=== PATIENT | female | born 1960 | race Hispanic/Latino ===

== ENCOUNTER 2023-11-22 11:40 | Inpatient (IN) | payer BC ==
[~2023-11-22] VITALS: Ht 154.9 cm; Wt 53.5 kg
[2023-11-22 11:45] VITALS: TEMP 97.1
[2023-11-22 12:26] LABS: EOSINOPHILS # (AUTO) 0.1 (0.0-0.4); EOSINOPHILS % 2.3 % (0.0-6.0); HEMATOCRIT 30.1 % (34.2-44.1); HEMOGLOBIN 9.4 g/dL (12.0-16.0); LYMPHOCYTES # (AUTO) 0.8 (1.0-3.2); LYMPHOCYTES % 24.9 % (18.0-39.1); MEAN CORPUSCULAR HEMOGLOBIN 25.5 pg (28-32); MEAN CORPUSCULAR HGB CONC 31.2 g/dL (31-35); MEAN CORPUSCULAR VOLUME 81.6 fL (81-99); MONOCYTES # (AUTO) 0.2 (0.2-0.8); NEUTROPHILS # (AUTO) 1.9 (2.1-6.9); NEUTROPHILS % 63.8 % (38.7-80.0); PLATELET COUNT 270 x10e3/uL (140-360); RED BLOOD COUNT 3.69 x10e6/uL (3.6-5.1); RED CELL DISTRIBUTION WIDTH 16.2 % (11.7-14.4); WHITE BLOOD COUNT 3.01 x10e3/uL (4.8-10.8)
[2023-11-22 12:42] LABS: ALBUMIN 3.6 g/dL (3.5-5.0); ALBUMIN/GLOBULIN RATIO 0.7 (0.8-2.0); ANION GAP 16.4 mmol/L (8-16); BILIRUBIN,TOTAL 0.2 mg/dL (0.2-1.2); CALCIUM 9.3 mg/dL (8.4-10.2); CREATININE, SERUM 2.94 mg/dL (0.57-1.11); POTASSIUM 4.4 mmol/L (3.5-5.1); TOTAL PROTEIN 8.6 g/dL (6.5-8.1)
[2023-11-22 14:24] VITALS: PULSE 84; RESP 18; O2SAT 99
[2023-11-22 15:02] LABS: CLARITY,URINE CLEAR (CLEAR); COLOR,URINE STRAW (YELLOW); PH,URINE 5.5 (5 - 7)
[2023-11-22 15:03] LABS: BILIRUBIN,URINE NEGATIVE (NEGATIVE); GLUCOSE, URINE NEGATIVE (NEGATIVE); KETONES,URINE NEGATIVE (NEGATIVE); LEUKOCYTE ESTERASE ,URINE NEGATIVE (NEGATIVE); NITRITE,URINE NEGATIVE (NEGATIVE); PROTEIN,URINE DIPSTICK 2+ (NEGATIVE); URINE UROBILINOGEN 0.2 mg/dL (0.2 - 1)
[2023-11-22 15:50] LABS: RBC,URINE >50 /HPF (0-5)
[2023-11-22] MEDS: SODIUM CHLORIDE 0.9% 1000ML 1,000 ML IV SCH (16:49)
[2023-11-22 18:00] VITALS: PULSE 75; RESP 16
[2023-11-22 20:20] VITALS: PULSE 81; RESP 18; O2SAT 99
[2023-11-22 21:00] VITALS: BP 192/84; PULSE 96; RESP 17; TEMP 97.7; O2SAT 100; O2SAT 94
[2023-11-22] MEDS ORDERED: AMLODIPINE BESY10 MG PO (22:47)
[2023-11-23] VITALS (7 sets, daily range): BP systolic 120–183; BP diastolic 69–94; PULSE 66–87; RESP 17–18; TEMP 97.7–98.2; O2SAT 98–100
[2023-11-23 05:32] LABS: BASOPHILS % 0.7 % (0.0-1.0); EOSINOPHILS # (AUTO) 0.2 (0.0-0.4); EOSINOPHILS % 5.2 % (0.0-6.0); HEMOGLOBIN 8.8 g/dL (12.0-16.0); LYMPHOCYTES % 35.3 % (18.0-39.1); MEAN CORPUSCULAR HEMOGLOBIN 25.3 pg (28-32); MEAN CORPUSCULAR HGB CONC 31.4 g/dL (31-35); MEAN CORPUSCULAR VOLUME 80.5 fL (81-99); MONOCYTES # (AUTO) 0.2 (0.2-0.8); NEUTROPHILS # (AUTO) 1.4 (2.1-6.9); NEUTROPHILS % 49.4 % (38.7-80.0); PLATELET COUNT 238 x10e3/uL (140-360); RED BLOOD COUNT 3.48 x10e6/uL (3.6-5.1); RED CELL DISTRIBUTION WIDTH 16.4 % (11.7-14.4); WHITE BLOOD COUNT 2.86 x10e3/uL (4.8-10.8)
[2023-11-23 05:50] LABS: CALCIUM 9.8 mg/dL (8.4-10.2); CREATININE, SERUM 2.12 mg/dL (0.57-1.11)
[2023-11-23 05:59] LABS: ANION GAP 5.8 mmol/L (8-16); POTASSIUM 4.8 mmol/L (3.5-5.1)
[2023-11-23] MEDS: NIFEDIPINE CR 30 MG TAB PO SCH (09:22)
[2023-11-23] MEDS ORDERED: HYDROCODONE/APAP 5MG-325MG TAB PO PRN (11:30)
[2023-11-23] MEDS ORDERED: ONDANSETRON HCL INJ 2MG/ML 2ML 2 MG/ML VIAL IV PRN (11:30)
[2023-11-23] MEDS ORDERED: MELATONIN 3 MG TAB PO PRN (11:30)
[2023-11-23] MEDS ORDERED: HYDRALAZINE HCL 20 MG/ML VIAL IV PRN (11:30)
[2023-11-24] VITALS (9 sets, daily range): BP systolic 120–150; BP diastolic 65–82; PULSE 65–87; RESP 16–18; TEMP 97.5–98.4; O2SAT 96–100
[2023-11-24] MEDS: DEXTROSE 5% 1,000 ML IV SCH (09:39)
[2023-11-24] MEDS: ACETAMINOPHEN 325 MG TAB PO PRN (20:05)
[2023-11-25] VITALS: BP 143/74; PULSE 61; RESP 18; TEMP 97.7; O2SAT 100
[2023-11-25 04:25] VITALS: BP 133/78; PULSE 68; RESP 18; TEMP 97.8; O2SAT 98
[2023-11-25 06:39] LABS: ALBUMIN 2.8 g/dL (3.5-5.0); ALBUMIN/GLOBULIN RATIO 0.7 (0.8-2.0); ANION GAP 10.9 mmol/L (8-16); BILIRUBIN,TOTAL 0.2 mg/dL (0.2-1.2); CALCIUM 8.8 mg/dL (8.4-10.2); CREATININE, SERUM 1.76 mg/dL (0.57-1.11); POTASSIUM 3.9 mmol/L (3.5-5.1); TOTAL PROTEIN 6.6 g/dL (6.5-8.1)
[2023-11-25 07:50] VITALS: BP 141/96; PULSE 71; RESP 17; TEMP 97.8; O2SAT 100
[2023-11-25 08:00] VITALS: BP 141/96; PULSE 71; RESP 17; TEMP 97.8; O2SAT 100
[2023-11-25 11:55] VITALS: BP 145/76; PULSE 72; RESP 18; TEMP 98.1; O2SAT 100
[2023-11-25] MEDS ORDERED: NIFEDIPINE ER30 M1 PO (15:10)
[2023-11-25] MEDS ORDERED: ONDANSETRON HCL 4 MG ORAL DISINTEGRATING TAB PO PRN (16:00)
[2023-11-25] MEDS ORDERED: SODIUM BICARBONATE 650 MG TAB PO SCH (17:00)
== END 2023-11-25 17:40 | disposition home or self-care (01) | DRG 682 ==
LOC: ER 11:52 → ERHOLD 13:17 → MED/SURG3 21:28 → OBSVTOIN 11-24 13:54
PROVIDERS: ADMIT Internal Medicine; ATTEND Internal Medicine
DX: N17.9 Acute kidney failure, unspecified (principal); E43 Unspecified severe protein-calorie malnutrition; E87.0 Hyperosmolality and hypernatremia; I12.9 Hypertensive chronic kidney disease with stage 1 through stage 4 chronic kidney disease, or unspecified chronic kidney disease; N18.30 Chronic kidney disease, stage 3 unspecified; D63.1 Anemia in chronic kidney disease; I16.0 Hypertensive urgency; Z68.22 Body mass index [BMI] 22.0-22.9, adult; M32.9 Systemic lupus erythematosus, unspecified; D72.819 Decreased white blood cell count, unspecified; Z11.52 Encounter for screening for COVID-19
CPT/HCPCS: 36415; 76770; 80048; 80053; 81001; 85025; 94799; 99284; G0378; J7030; J7070; U0002